=== PATIENT | male | born 1980 | race African-American/Black ===

== ENCOUNTER 2019-09-09 09:32 | Emergency (ER) | payer OTHER ==
--- NOTE | 2019-09-09 09:35 | ER Document Report ---
ED General - General Stated Complaint: CHEST PAIN Time Seen by Provider: 09/09/19 09:33 Primary Care Provider: FILIBERTO CRUZ MD [ACTIVE STAFF] - Follow up as needed ARIAS CERON [NO LOCAL MD] - Follow up in 3-5 days Notes: Patient presents with intermittent left-sided chest pain rating from his neck to his shoulder to his left chest which is intermittent sharp worse with movement. Does a lot of kayaking and working with his arms. Had a episode of chest pain went to [facility] was noted to have 1 PVC EKG was called abnormal 911 was called. He is currently pain-free he has no cardiac history. Denies palpitations of breath fever chills etc. - Related Data Allergies/Adverse Reactions: No Known Allergies Allergy (Unverified 09/09/19 09:59) Past Medical History - General Information source: Patient - Social History Smoking Status: Unknown if Ever Smoked Family History: None - Past Medical History Cardiac Medical History: Reports: Hx Hypertension - Immunizations Hx Diphtheria, Pertussis, Tetanus Vaccination: No - unknown Review of Systems - Review of Systems Notes: REVIEW OF SYSTEMS GEN: Denies fever, chills, weight loss ENT: Denies sore throat, nasal discharge, ear pain EYES: Denies blurry vision, eye pain, discharge CV: Denies chest pain, palpitations, edema RESP: Denies cough, shortness of breath, wheezing GI: Denies abdominal pain, nausea, vomiting, diarrhea MSK: Denies joint pain/swelling, edema, SKIN: Denies rash, skin lesions LYMPH: Denies swollen glands/lymph nodes NEURO: Denies headache, focal weakness or numbness, dizziness PSYCH: Denies depression, suicidal or homicidal ideation PHYSICAL EXAMINATION General: No acute distress, well-nourished Head: Atraumatic, normocephalic ENT: Mouth normal, oropharynx moist, no exudates or tonsillar enlargement Eyes: Conjunctiva normal, pupils equal, lids normal Neck: No JVD, supple, no guarding CVS: Normal rate, regular rhythm, no murmurs Resp: No resp distress, equal and normal breath sounds bilaterally GI: Nondistended, soft, no tenderness to palpation, no rebound or guarding Ext: No deformities, no edema, normal range of motion in upper and lower ext Back: No CVA or midline TTP Skin: No rash, warm Lymphatic: No lymphadeopathy noted Neuro: Awake, alert. Face symmetric. GCS 15. Physical Exam - Vital signs Vitals: Temp Resp BP Pulse Ox 97.7 F 16 141/92 H 100 09/09/19 09:43 09/09/19 09:43 09/09/19 09:43 09/09/19 09:43 Course - Re-evaluation Re-evalutation: 09/09/19 16:01 Better after magnesium. Will discharge with mag and caffeine avoidance. He will follow-up with cardiology for possible mobile monitoring but his work appears negative. I have discussed with the patient there likely diagnosis, aftercare plan, follow-up plans and my usual and customary return precautions. They verbalized understanding of this. - Vital Signs Vital signs: Temp Pulse Resp BP Pulse Ox 98.0 F 71 16 133/91 H 99 09/09/19 11:32 09/09/19 11:32 09/09/19 11:32 09/09/19 11:32 09/09/19 11:32 09/09/19 09:35 presents with signs and symptoms which are most likely due to radiculopathy or neck pathology, but will rule out ACS He does not have risk factors His physical exam shows clear lungs with normal saturationdoubt pneumonia no need for chest x-ray, doubt PE dissection etc. EKG at the facility showed 1 PVC. - Laboratory Result Diagrams: 09/09/19 09:18 09/09/19 09:18 Laboratory results interpreted by me: 09/09/19 09:18 RDW 14.4 H Lymph % (Auto) 46.4 H Seg Neutrophils % 38.7 L Discharge - Discharge Clinical Impression: Palpitations, Premature ventricular contraction Condition: Good Disposition: HOME, SELF-CARE Instructions: Palpitations (Irregular or Rapid Heartrate) ([facility]) Prescriptions: Magnesium Oxide [Magnesium Oxide 400] 240 mg PO DAILY #20 [email or web address] Referrals: JIE,NO [NO LOCAL MD] - Follow up in 3-5 days FILIBERTO CRUZ MD [ACTIVE STAFF] - Follow up as needed
[2019-09-09] MEDS ORDERED: MAGNESIUM SULFATE/D5W 1 GM/100 ML RTUPB IV ONE (09:42)
[2019-09-09 09:48] LABS: ABSOLUTE BASOPHILS # (AUTO) 0.1 10^3/uL (0.0-0.2); ABSOLUTE EOSINOPHILS # (AUTO) 0.1 10^3/uL (0.0-0.6); ABSOLUTE LYMPHOCYTES (AUTO) 2.4 10^3/uL (0.5-4.7); ABSOLUTE MONOCYTES (AUTO) 0.6 10^3/uL (0.1-1.4); BASOPHILS % (AUTO) 1.3 % (0-2); EOSINOPHILS % (AUTO) 2.6 % (0-6); HEMATOCRIT 44.7 % (37.9-51.0); HEMOGLOBIN 15.3 g/dL (13.5-17.0); LYMPHOCYTES % (AUTO) 46.4 % (13-45); MEAN CORPUSCULAR HEMOGLOBIN 31.2 pg (27.0-33.4); MEAN CORPUSCULAR HGB CONC 34.3 g/dL (32.0-36.0); MEAN CORPUSCULAR VOLUME 91 fl (80-97); PLATELET COUNT 238 10^3/uL (150-450); RED BLOOD COUNT 4.92 10^6/uL (4.35-5.55); RED CELL DISTRIBUTION WIDTH 14.4 % (11.5-14.0); SEGMENTED NEUTROPHILS % (AUTO) 38.7 % (42-78); TOTAL CELLS COUNTED % (AUTO) 100 %; WHITE BLOOD COUNT 5.2 10^3/uL (4.0-10.5)
[2019-09-09 10:09] LABS: ANION GAP 6 (5-19); BLOOD UREA NITROGEN 11 mg/dL (7-20); CALCIUM 9.6 mg/dL (8.4-10.2); CARBON DIOXIDE 27 mmol/L (22-30); CHLORIDE 104 mmol/L (98-107); GLUCOSE 104 mg/dL (75-110); POTASSIUM 4.2 mmol/L (3.6-5.0)
[2019-09-09 11:31] VITALS: BP 133/91
--- NOTE | 2019-09-09 12:51 | EKG REPORT ---
SEVERITY:- ABNORMAL ECG - SINUS BRADYCARDIA. MULTIPLE VENTRICULAR PREMATURE COMPLEXES FIRST DEGREE AV BLOCK : Confirmed by: Jose Newsome MD 09-Sep-2019 12:50:23
== END 2019-09-09 11:31 | disposition home or self-care (01) ==
LOC: ER 09:32
DX: I49.3 Ventricular premature depolarization (principal); R00.2 Palpitations; R07.9 Chest pain, unspecified; I10 Essential (primary) hypertension
CPT/HCPCS: 99285; 36415; 83735; 85025; 80048; 84484; 93005; 93010; J3475